=== PATIENT | female | born 1990 | race Caucasian/White ===

== ENCOUNTER 2016-08-14 19:22 | Emergency (ER) | payer BC, OTHER ==
[~2016-08-14] VITALS: Ht 165.1 cm; Wt 70.8 kg
[2016-08-14 19:25] VITALS: BP 138/83
[2016-08-14] MEDS ORDERED: LIDOCAINE 2% MDV 20 ML VIAL SC ONE (20:15)
== END 2016-08-14 20:48 | disposition home or self-care (01) ==
LOC: M ED 20:46
DX: S61.412A Laceration without foreign body of left hand, initial encounter (principal); W26.8XXA Contact with other sharp object(s), not elsewhere classified, initial encounter; Y92.099 Unspecified place in other non-institutional residence as the place of occurrence of the external cause; Y93.E5 Activity, floor mopping and cleaning; Y99.9 Unspecified external cause status; Z88.8 Allergy status to other drugs, medicaments and biological substances

== ENCOUNTER → 2018-09-25 | Outpatient (CLI) | payer OTHER, SELFPAY ==
--- NOTE | 2018-09-25 09:51 | REP ---
FIRST TRIMESTER ULTRASOUND: Real-time sonographic evaluation of gravid uterus performed. There is a single living intrauterine gestation with estimated gestational age 13 weeks 2 days, EDC 03/31/2019. BPD 22 mm = 13 weeks 4 days HC 83 mm = 13 weeks 4 days AC 62 mm = 12 weeks 6 days Femur length 8 mm = 12 weeks 4 days HC/AC ratio 1.35 is slightly above normal range of 1.12 to 1.31. heart rate 154 beats per minute. There is no subchorionic hemorrhage. Placenta is anterior with no previa. A synechiae is noted on the right. No maternal adnexal region abnormalities are seen. Electronically Signed by David Gaxiola MD 09/25/2018 02:11 P
== END ==
LOC: M RAD 07:36
PROVIDERS: ATTEND Advanced Practice Midwife
DX: O26.891 Other specified pregnancy related conditions, first trimester (principal); Z3A.13 13 weeks gestation of pregnancy; N85.6 Intrauterine synechiae

== ENCOUNTER → 2018-10-02 | Outpatient (CLI) | payer OTHER ==
[2018-10-02 13:22] LABS: BASO % 0.4 % (0.0-1.0); EOS # 0.1 10^3/uL (0.0-0.50); EOS % 0.8 % (0.0-3.0); HEMATOCRIT 40.4 % (36.0-47.0); HEMOGLOBIN 13.7 g/dl (12.0-15.5); LYMPH # 1.6 10^3/uL (1.5-6.5); LYMPH % 20.6 % (24.0-44.0); MEAN CORPUSCULAR HEMOGLOBIN 31.9 pg (27.0-33.0); MEAN CORPUSCULAR HGB CONC 33.9 g/dl (32.0-36.5); MONO # 0.5 10^3/uL (0.0-0.8); MONO % 6.4 % (0.0-5.0); NEUTROPHILS # 5.6 10^3/uL (1.8-7.7); NEUTROPHILS % 71.4 % (36.0-66.0); PLATELET COUNT, AUTOMATED 294 10^3/uL (150-450); WHITE BLOOD COUNT 7.9 10^3/uL (4.0-10.0)
[2018-10-02 14:15] LABS: HEPATITIS C VIRUS ABY INDEX < 0.0 INDEX (<0.8); HIV 1&2 SCREEN CENTAUR NEGATIVE (NEGATIVE); RUBELLA IgG QUALITATIVE IMMUNE (IMMUNE)
[2018-10-02 14:43] LABS: CHLAMYDIA DNA AMPLIFICATION NEGATIVE (NEGATIVE); GC DNA AMPLIFICATION NEGATIVE (NEGATIVE)
== END ==
LOC: M SMT 09:30
PROVIDERS: ATTEND Advanced Practice Midwife
DX: Z34.01 Encounter for supervision of normal first pregnancy, first trimester (principal); Z3A.10 10 weeks gestation of pregnancy

== ENCOUNTER → 2018-10-10 | Outpatient (CLI) | payer OTHER ==
[2018-10-10 10:43] LABS: ALT/SGPT 43 U/L (12-78); BILIRUBIN,TOTAL 0.3 MG/DL (0.2-1.0); CREATININE FOR GFR 0.52 MG/DL (0.55-1.30); GLOMERULAR FILTRATION RATE > 60.0 (>60); LDH LACTATE DEHYDROGENASE 157 U/L (84-246); URIC ACID 2.5 MG/DL (2.6-6.0)
[2018-10-10 11:02] LABS: CREATININE,RANDOM URINE 89.9 MG/DL; TOTAL PROTEIN,RANDOM URINE 18.9 MG/DL (0.0-12.0)
== END ==
LOC: M SMT 07:58
PROVIDERS: ATTEND Advanced Practice Midwife
DX: O10.012 Pre-existing essential hypertension complicating pregnancy, second trimester (principal); Z3A.00 Weeks of gestation of pregnancy not specified

== ENCOUNTER → 2018-11-15 | Outpatient (CLI) | payer OTHER, SELFPAY ==
--- NOTE | 2018-11-15 09:58 | REP ---
Obstetric sonography: History: Supervision of for anatomy. Findings: Scanning through the gravid uterus demonstrates a viable single intrauterine gestation in a cephalic lie. motion is observed and heart rate is recorded at 139 beats per minute. Anterior grade 0 placenta is seen without evidence of previa or abruption. Amniotic fluid is subjectively normal. Closed cervical length measures 5.9 cm. No extrauterine abnormality is observed. There has been appropriate interval growth. Exam quality is inhibited by position. No anomaly is seen. Face and profile and heart visualization were impeded by position and these structures were less than optimally seen. The following additional anatomic structures are identified and felt to be unremarkable: cranium, choroid plexus, cavum, cerebellum and posterior fossa, lungs, diaphragm, left-sided stomach, abdominal wall cord insertion, three-vessel cord, kidneys and bladder, spine, upper and lower extremities. Biometry chart: BPD 4.7 cm = 20 weeks 1 day Head circumference 17.8 cm = 20 weeks 2 days Abdominal circumference 15.6 cm = 20 weeks 5 days Femur length 3.4 cm = 20 weeks 5 days Humeral length 3.1 cm = 20 weeks 3 days HC/AC ratio normal 1.14. Cephalic index normal 0.72. Estimated weight 366 grams, 0 pounds 12 ounces, 50th percentile for 20 weeks 4 days. Impression: Viable single intrauterine gestation at 20 weeks 3 days by today's composite criteria. Expected gestational age estimate based on prior sonography is 20 weeks 4 days. YOHAN by prior sonography March 31, 2019. Face and cardiac views of the fetus less than optimally seen. Electronically Signed by Geoffrey Vicente MD 11/15/2018 11:17 A
== END ==
LOC: M RAD 07:19
PROVIDERS: ATTEND Advanced Practice Midwife
DX: O99.342 Other mental disorders complicating pregnancy, second trimester (principal); Z3A.20 20 weeks gestation of pregnancy

== ENCOUNTER → 2018-12-27 | Outpatient (CLI) | payer BC, SELFPAY ==
--- NOTE | 2018-12-27 08:29 | REP ---
93 ultrasound a patient with preexisting essential hypertension: There is a single intrauterine gestation in a vertex presentation. There is motion and cardiac activity. The heart rate is 128 beats per minute. The placenta is anterior. There is no placenta previa or abruptio. The placenta is grade zero maturity. The amniotic fluid volume subjectively is normal. The cervix measures 5.0 cm length. Gestational age by today's ultrasound is 26 weeks 4 days/YOHAN 03/31/2019. Gestational age by the first ultrasound is 26 weeks 4 days/YOHAN 03/31/2019. Gestational age by LMP is unknown. The following anatomic structures are identified and are unremarkable: Cranium, choroid plexus, cavum septum pellucidum, cerebellum, facial profile, upper lip, lungs, four-chamber heart, cardiac right and left ventricular outflow tracts, diaphragm, stomach, cord insertion, three-vessel cord, kidneys, bladder, spine and upper lower extremities. No anomalies are identified Electronically Signed by David Coronel MD 12/27/2018 08:20 A
== END ==
LOC: M RAD 06:30
PROVIDERS: ATTEND Advanced Practice Midwife
DX: O10.012 Pre-existing essential hypertension complicating pregnancy, second trimester (principal); Z3A.26 26 weeks gestation of pregnancy

== ENCOUNTER → 2019-01-07 | Outpatient (CLI) | payer BC ==
[2019-01-07 08:12] LABS: HEMATOCRIT 34.9 % (36.0-47.0); HEMOGLOBIN 11.6 g/dl (12.0-15.5); MEAN CORPUSCULAR HEMOGLOBIN 31.8 pg (27.0-33.0); MEAN CORPUSCULAR HGB CONC 33.2 g/dl (32.0-36.5); MEAN CORPUSCULAR VOLUME 95.6 fl (80.0-96.0); PLATELET COUNT, AUTOMATED 319 10^3/uL (150-450); RED BLOOD COUNT 3.65 10^6/uL (4.00-5.40); WHITE BLOOD COUNT 9.9 10^3/uL (4.0-10.0)
== END ==
LOC: M LAB 06:21
PROVIDERS: ATTEND Advanced Practice Midwife
DX: O10.012 Pre-existing essential hypertension complicating pregnancy, second trimester (principal)

== ENCOUNTER → 2019-01-31 | Outpatient (CLI) | payer BC ==
--- NOTE | 2019-01-31 17:36 | REP ---
OB ULTRASOUND: Real-time sonographic evaluation of the gravid uterus performed utilizing transabdominal technique. There is a single living intrauterine gestation, estimated gestational age 31 weeks 4 days, EDC 03/31/2019. Today's measurements indicate appropriate growth. BPD 80 mm = 32 weeks 0 days, 57th percentile HC 292 mm = 32 weeks 1 day, 60th percentile AC 278 mm = 31 weeks 6 days, 55th percentile FL 60 mm = 31 weeks 2 days, 47th percentile HC/AC ratio 1.05, within normal range of 0.96 to 1.15. Estimated weight 1829 grams, 47th percentile. Cervix is closed and measures 2.9 cm in length. heart rate 132 beats per minute. Amniotic fluid appears to be upper limits of normal, JAIME is 24.4. Normal range is 8.7 to 24.0. S/D ratio 3.30 is within normal range of 3.30 to 4.70. RI 0.70 is within normal range of 0.63 to 0.79. Visualized anatomy includes lateral ventricles, stomach, three vessel cord, kidneys, bladder and spine which are all grossly unremarkable. position vertex. Placenta anterior and grade 2 with no previa or abruption. Electronically Signed by David Gaxiola MD 02/03/2019 05:01 P
== END ==
LOC: M RAD 13:02
PROVIDERS: ATTEND Obstetrics & Gynecology
DX: O10.012 Pre-existing essential hypertension complicating pregnancy, second trimester (principal)

== ENCOUNTER → 2019-02-21 | Outpatient (CLI) | payer BC ==
--- NOTE | 2019-02-21 20:29 | REP ---
OB ULTRASOUND: Real-time sonographic evaluation of the gravid uterus performed. There is a single living intrauterine gestation. Estimated gestational age 34 weeks 4 days, EDC 03/31/2019. Today's measurements indicate appropriate growth. BPD 90 mm = 36 weeks 2 days, 70th percentile HC 321 mm = 36 weeks 1 day, 78th percentile AC 316 mm = 35 weeks 4 days, 65th percentile FL 65 mm = 33 weeks 3 days, 34th percentile HC/AC ratio 1.02 within normal range. Estimated weight 2600 grams, 58th percentile. Cervix is closed and measures 4.4 cm in length. heart rate 136 beats per minute. Amniotic fluid appears upper limits of normal. JAIME 23.1, within normal range of 8.0 to 24.9. S/D ratio 2.73, within normal range of 2.0 to 3.0, RI 0.63, within normal range of 0.59 to 0.75. Visualized anatomy today includes upper lip, four chamber heart, stomach, cord insertion, three vessel cord, kidneys and bladder, which are grossly unremarkable. position vertex. Placenta is anterior and grade 1 with no previa or abruption. Electronically Signed by David Gaxiola MD 02/22/2019 03:33 P
== END ==
LOC: M RAD 09:00
PROVIDERS: ATTEND Advanced Practice Midwife
DX: O10.012 Pre-existing essential hypertension complicating pregnancy, second trimester (principal); Z3A.34 34 weeks gestation of pregnancy

== ENCOUNTER → 2019-02-28 | Outpatient (REF) | payer BC | LOC: M LAB REF 16:48 | PROVIDERS: ATTEND Advanced Practice Midwife | DX: O10.013 Pre-existing essential hypertension complicating pregnancy, third trimester (principal) ==

== ENCOUNTER → 2019-03-07 | Outpatient (CLI) | payer BC | LOC: M SMT 09:24 | PROVIDERS: ATTEND Advanced Practice Midwife | DX: O10.013 Pre-existing essential hypertension complicating pregnancy, third trimester (principal) ==

== ENCOUNTER → 2019-03-12 | Outpatient (CLI) | payer BC ==
--- NOTE | 2019-03-13 05:03 | REP ---
Clinical: Growth evaluation. Comparison: 02/21/2019 . Findings: Examination demonstrates a single live intrauterine in cephalic presentation. motion is identified by technologist. Placenta is noted anterior and grade I I I without evidence for placenta previa or abruption. Amniotic fluid volume is normal. Cervix measures 2.7 cm in length and appears closed. No evidence for nuchal cord. Gestational age by LMP 37 weeks 2 days with YOHAN 03/31/2019 . Gestational age by current measurements 36 weeks 6-day with YOHAN 04/03/2019 . FHR equals 140 beats per minute. Estimated weight 3082 grams ( 50th percentile). Amniotic fluid index: 24.2 cm (7.5 - 24.3) Umbilical cord SD ratio: 2.20 (1.60 - 2.20) Anatomical assessment demonstrates normal structures. Impression: Single live advanced gestation in cephalic presentation demonstrating appropriate interval growth. No gross abnormalities are identified. Electronically Signed by Ernie Adame MD 03/13/2019 04:54 A
== END ==
LOC: M RAD 13:35
PROVIDERS: ATTEND Advanced Practice Midwife
DX: O10.012 Pre-existing essential hypertension complicating pregnancy, second trimester (principal)

== ENCOUNTER 2019-03-24 08:13 | Inpatient (IN) | payer BC ==
[~2019-03-24] VITALS: Ht 165.1 cm; Wt 93.6 kg
[2019-03-24] VITALS (14 sets, daily range): BP systolic 78–127; BP diastolic 39–70
[2019-03-24] MEDS ORDERED: LACTATED RINGER'S 1000 ML IV STA (08:21)
--- NOTE | 2019-03-24 08:54 | HPEPDOC ---
Obstetrical History & Physical General Date of Admission Mar 24, 2019 at 08:13 Primary Care Physician: KAIDEN GARCIA CNM History of Present Illness Patient is a 29-year-old female who is a at 38.4 weeks gestation with an YOHAN of 04/03/19 based off of her first trimester ultrasound. She initiated care in her first trimester of with AWP. Her has been complicated by CHTN, which has been controlled with 50 mg of Labetalol BID. She presents to L&D for an IOL related to CHTN. She reports active movement. She denies co ntractions, preeclamptic symptoms, leaking of fluid, or vaginal bleeding. Chief Complaint: Other (Chronic Hypertension) Information Provided By: Patient Age: 29 : 1 Term: 0 Pre-term: 0 Abortions: 0 Livin Care Care: Good Care Dating Final EDC: Apr 03, 2019 Final EDC by: 1st trimester (US) EGA at Admission: 38.4 Antepartum Course Diagnos(e)s Chronic hypertension Polyhydramnios Height (inches): 65 Pre- weight (lbs.): 177 Admission Weight (lbs.): 209 Change in Weight (lbs.): 32 Past Medical History Past Obstetrical History : Past Obstetrical History: [employer] History: No pertinent history Past Medical History Medical History Anxiety-no medications Childhood seizures-last seizure at age 10 Surgical History: Denies/None Family History Significant Family History: Diabetes Social History Marital Status: Family situation: Spouse/partner home Psychosocial History: Anxiety * Smoker: former Smoker Alcohol: Denies Drugs: denies Abuse Violence Screening Have you been hit/kicked/slapp: No Have you been sexually assault: No Imunizations Tdap status: current Influenza Status: current Allergies Coded Allergies: phenytoin (Verified Allergy, Mild, RASH, 03/24/19) Medications Scheduled Labetalol HCl (Labetalol HCl) 100 Mg Tablet, 50 MG PO BID No.137/Iron/Folic Acd ( Vitamin Tablet) 1 Each Tablet, 1 TAB PO DAILY Physical Examination Physical Examination GENERAL: Alert and oriented times three. BREAST: . ABDOMEN: Gravid and non-tender to touch. FETUS: Is vertex (VTX) by sterile vaginal examination (SVE), fetus is vertex (VTX) by Reyes. HEART RATE: Regular rate and rhythm. LUNGS: Clear to auscultation (CTA). EXTREMITIES: 1-2+ pitting edema on feet and ankles. No clonus. Deep tendon reflexes (DTRs) + 2. Vital Signs/I&O Vital Signs Label Value Date Time Patient Temperature 98.7 degrees F 03/24/19 1000 Temperature Source Temporal 03/24/19 1000 Respiratory Rate 16 bpm 03/24/19 1000 Pulse 83 03/24/19 0926 Blood Pressure Assessment 119/63 (81) 03/24/19 0926 Source Automatic Cuff (NIBP) Laboratory Data [facility] Laboratory Tests 2 03/24/19 08:37: Serology Scanned Report Hepatitis B Testing Urine Culture: No Growth Pertinent Laboratoy Data Blood Type: A+ RBC Antibody Screen: Negative HIV: Negative Hepatitis B: Negative Hepatitis C: Negative Rapid Plasma Reagin: Nonreactive Rubella: Immune Chlamydia/Gonorrhea: Negative Group B Streptococcus: Negative Glucose Tolerance Test: 113 Anatomy Ultrasound Ultrasound Date: Mar 12, 2019 Placenta Location: Anterior Normal Anatomy: Yes Placenta Previa: No Vaginal Examination Dilation: 1cm Effacement: other (75%) Station: -2 Cervical Consistency: Soft Cervical Position: Middle Presentation: Cephalic presentation Position: Vertex (occiput) Assessment Heart Rate (FHR): 135 Variability: Moderate Accelerations: Positive Decelerations: None Tocometer Contractions: Yes Frequency: irregular Multi-drug resistant Organism: No history of MDRO Assessment/Plan Assessment IUP at 38.4 weeks gestation Chronic hypertension polyhydramnios Category I FHR tracing GBS negative Plan Admit to L&D. Plan of care collaborated with Dr. Ortega. OOB ad lambert. Diet: regular then clears when patient is switched to IV Pitocin. Group B Streptococcus (GBS) negative. Labs and intravenous (IV) per unit protocol. Counseled on Cytotec and IV Pitocin for induction of labor. Anesthesia consult per patient's request. Lactated Ringers (LR): Bolus 800 mL prior to epidural, then at 125 mL/hr. Anticipate cervical ripening. C-S as appropriate. KAIDEN GARCIA CNM Mar 24, 2019 08:54
[2019-03-24] MEDS: miSOPROStol 50 MCG 1/2 TAB (S0191) PO SCH ×2 (09:42→13:56)
[2019-03-24 10:00] LABS: HEMATOCRIT 35.1 % (36.0-47.0); HEMOGLOBIN 11.9 g/dl (12.0-15.5); MEAN CORPUSCULAR HEMOGLOBIN 31.7 pg (27.0-33.0); MEAN CORPUSCULAR HGB CONC 33.9 g/dl (32.0-36.5); MEAN CORPUSCULAR VOLUME 93.6 fl (80.0-96.0); PLATELET COUNT, AUTOMATED 325 10^3/uL (150-450); RED BLOOD COUNT 3.75 10^6/uL (4.00-5.40); WHITE BLOOD COUNT 12.2 10^3/uL (4.0-10.0)
[2019-03-24] MEDS ORDERED: PRENTAB9 PO (10:06)
[2019-03-24] MEDS ORDERED: LABE100T36 PO (10:06)
[2019-03-24 11:08] LABS: ALT/SGPT 14 U/L (12-78); BILIRUBIN,TOTAL 0.3 MG/DL (0.2-1.0); CREATININE FOR GFR 0.45 MG/DL (0.55-1.30); GLOMERULAR FILTRATION RATE > 60.0 (>60); LDH LACTATE DEHYDROGENASE 131 U/L (84-246); URIC ACID 3.7 MG/DL (2.6-6.0)
--- NOTE | 2019-03-24 18:30 | IPNPDOC ---
Obstetrical Progress Note Date of Service Mar 24, 2019 Subjective Patient reports she feels some cramping. Objective Vital Signs Date Time Temp Pulse Resp B/P (MAP) Pulse Ox O2 Delivery O2 Flow Rate FiO2 03/24/19 15:30 97 16 92/56 (68) 03/24/19 13:42 98.5 Assessment Heart Rate (FHR): 135 Variability: Moderate Accelerations: Positive Decelerations: None Heart Rate Tracing: Category I Tocometer Contractions: Yes Frequency: regular, every 1-3 min. Sterile Vaginal Examination Dilation: 1cm (1-2 cm) Effacement (%): other (75%) Station: -2 Cervical Consistency: Soft Cervical Position: Middle Postion/Presentation: Cephalic presentation Assessment and Plan Age: 29 : 1 Term: 0 Pre-term: 0 Abortions: 0 Livin EGA at Admission: 38.4 Status: Reassuring Group B Streptococcus: Negative Anticipate: Vaginal Delivery Additional Comments Le bulb placed with 60/40 cc of NS. Patient tolerated well. IV Pitocin to be started per order. KAIDEN GARCIA CNM Mar 24, 2019 18:30
[2019-03-24] MEDS ORDERED: OXYTOCIN DRIP 30 UNITS in IV 1 EA IV SCH (19:00)
[2019-03-24] MEDS ORDERED: LR 1,000 ML IV SCH (19:00)
--- NOTE | 2019-03-24 22:20 | IPNPDOC ---
Obstetrical Progress Note Date of Service Mar 24, 2019 Subjective Patient reports her contractions aren't as strong as they were. Objective Vital Signs Date Time Temp Pulse Resp B/P (MAP) Pulse Ox O2 Delivery O2 Flow Rate FiO2 03/24/19 21:01 81 111/60 (77) 03/24/19 20:00 97.9 03/24/19 18:08 16 03/24/19 17:35 98 Room Air Assessment Heart Rate (FHR): 135 Variability: Moderate Accelerations: Positive Decelerations: None Heart Rate Tracing: Category I Tocometer Contractions: Yes Frequency: regular, every 2-2 min. Sterile Vaginal Examination Dilation: 5 cm Effacement (%): 80% Cervical Consistency: Soft Cervical Position: Middle Postion/Presentation: Cephalic presentation Assessment and Plan Age: 29 : 1 Term: 0 Pre-term: 0 Abortions: 0 Livin EGA at Admission: 38.4 Status: Reassuring Group B Streptococcus: Negative Anticipate: Vaginal Delivery Additional Comments Le bulb out. IV Pitocin at 4 mu/min. Continue with IV Pitocin and consider AROM. KAIDEN GARCIA CNM Mar 24, 2019 22:20
[2019-03-25] VITALS (20 sets, daily range): BP systolic 89–139; BP diastolic 52–77
[2019-03-25] MEDS ORDERED: FENTANYL 2MCG/ML ROPIVACAINE 0.2% IN 0.9% NACL 100ML IVBAG As Ordered ONE (01:11)
[2019-03-25] MEDS ORDERED: diphenhydrAMINE INJ 50MG/ML VIAL (J1200) IV PRN (01:15)
[2019-03-25] MEDS ORDERED: REFRIGERATOR IV KEYS XX PRN (01:15)
[2019-03-25] MEDS ORDERED: ePHEDrine SULFATE 25 MG/5 ML(5MG/ML) SYRINGE IV PRN (01:15)
[2019-03-25] MEDS ORDERED: EPIDURAL COMMENT XX SCH (01:15)
[2019-03-25] MEDS ORDERED: FENTANYL/ROPIVACAINE/NACL BAG 100 ML EPIDURAL SCH (01:15)
[2019-03-25] MEDS ORDERED: EPIDURAL/PCA KEYS XX PRN (01:15)
[2019-03-25] MEDS ORDERED: ONDANSETRON 4MG/2ML VIAL (J2405) IV PRN (01:15)
[2019-03-25] MEDS ORDERED: NALOXONE INJ 0.4 MG/1 ML VIAL (J2310) IV PRN (01:15)
[2019-03-25] MEDS ORDERED: OXYTOCIN DRIP 30 UNITS in IV 1 EA IV SCH (09:46)
[2019-03-25] MEDS ORDERED: ACETAMINOPHEN 500 MG TAB PO PRN (10:00)
[2019-03-25] MEDS ORDERED: METHYLERGONOVINE MALEATE 0.2 MG TAB PO PRN (10:00)
[2019-03-25] MEDS ORDERED: DOCUSATE SODIUM 100 MG CAP PO PRN (10:00)
[2019-03-25] MEDS ORDERED: RHOGAM 300 MCG (1500 IU) INJ (J2790) IM SCH (10:00)
[2019-03-25] MEDS ORDERED: MEASLES,MUMPS,RUBELLA VACCINE INJ (MMR-II) (90707) SC SCH (10:00)
[2019-03-25] MEDS ORDERED: DIBUCAINE 1% OINTMENT 30GM TOP PRN (10:00)
[2019-03-25] MEDS ORDERED: ACETAMINOPHEN TAB 650MG DOSE (2X325MG) PO PRN (10:00)
--- NOTE | 2019-03-25 10:19 | DNPDOC ---
[facility] Delivery Note Delivery Note DATE OF DELIVERY: 03/25/19 at 0845. PREDELIVERY DIAGNOSIS: 38-5/7 weeks' gestation and labor. POST DELIVERY DIAGNOSIS: Delivered. PROCEDURE: Spontaneous vaginal delivery. PROVIDER: Kaiden Cooley CNM, ANAID ANESTHESIA: epidural. ESTIMATED BLOOD LOSS: 350 mL. FINDINGS: 7 pounds; 3180 grams; female , Score 7/9, CHTN. DELIVERY SUMMARY: Patient is a 29-year-old female who is a at 38.4 weeks gestation who presented for an IOL for CHTN. Two doses of cytotec, a alicea bulb and IV Pitocin was used for induction. She received an epidural for pain manage ment. The patient progressed to fully dilated at 0827. She pushed to a living female in the DOMENICA position with restitution to ROT. The anterior shoulder delivered with ease and the corpus immediately followed. The baby was placed skin to skin active and crying. The cord was clamped x2 and cut by the FOB. A 3- vessel cord was noted. The placenta delivered spontaneously and intact at 0850. Uterine hemostasis was achieved via rapid infusion of IV Pitocin and fundal massage. The vagina, perineum and cervix was inspected and found to have a 2nd degree perineal laceration that was repaired with a 3.[address]-1. Mom plans to breast feed her . Both mom and baby re in stable condition. All counts of instruments and sponges are correct. KAIDEN COOLEY CNM Mar 25, 2019 10:19
[2019-03-25] MEDS: IBUPROFEN 600 MG TAB PO PRN (11:08)
[2019-03-25] MEDS: IBUPROFEN 800 MG TAB PO PRN (20:18)
[2019-03-26 06:00] VITALS: BP 107/54
[2019-03-26] MEDS: PRENATAL VITAMINS CHEWABLE TABLET PO SCH (08:01)
[2019-03-26] MEDS: IBUPROFEN 600 MG TAB PO PRN ×2 (08:04→17:50)
[2019-03-26 18:00] VITALS: BP 106/64
[2019-03-27] MEDS: IBUPROFEN 800 MG TAB PO PRN (05:16)
[2019-03-27 06:00] VITALS: BP 113/63
[2019-03-27] MEDS: PRENATAL VITAMINS CHEWABLE TABLET PO SCH (09:17)
== END 2019-03-27 11:45 | disposition home or self-care (01) | DRG 560 ==
LOC: M LDI 08:13 → M OBS 03-25 11:29
PROVIDERS: ADMIT Advanced Practice Midwife; ATTEND Advanced Practice Midwife
PROC: 3E0P7GC Introduction of Other Therapeutic Substance into Female Reproductive, Via Natural or Artificial Opening (ICD-10-PCS; 2019-03-24)
PROC: 10E0XZZ Delivery of Products of Conception, External Approach (ICD-10-PCS; principal; 2019-03-25)
PROC: 0KQM0ZZ Repair Perineum Muscle, Open Approach (ICD-10-PCS; 2019-03-25)
DX: O10.02 Pre-existing essential hypertension complicating childbirth (principal); O40.3XX0 Polyhydramnios, third trimester, not applicable or unspecified; Z3A.38 38 weeks gestation of pregnancy; O70.1 Second degree perineal laceration during delivery; Z37.0 Single live birth

== ENCOUNTER → 2020-01-29 | Outpatient (REF) | payer BC ==
[~2020-01-29] MED LIST: LABE100T36 PO; PRENTAB9 PO
== END ==
LOC: M LAB REF 14:37
PROVIDERS: ATTEND Dermatology
DX: D22.61 Melanocytic nevi of right upper limb, including shoulder (principal)

== ENCOUNTER → 2020-04-06 | Outpatient (REF) | payer BC | LOC: M LAB REF 17:38 | PROVIDERS: ATTEND Dermatology | DX: D23.61 Other benign neoplasm of skin of right upper limb, including shoulder (principal) ==

== ENCOUNTER → 2020-08-20 | Outpatient (REF) | payer BC ==
[~2020-08-20] MED LIST changes: -LABE100T36 PO; +LABE100T5 PO
== END ==
LOC: M SFHCWAGY 10:28
PROVIDERS: ATTEND Advanced Practice Midwife
DX: Z12.4 Encounter for screening for malignant neoplasm of cervix (principal)
CPT/HCPCS: 87624; G0123

== ENCOUNTER → 2021-08-10 | Outpatient (REF) | payer BC | LOC: M LAB REF 14:26 | PROVIDERS: ATTEND Physician Assistant | DX: R50.9 Fever, unspecified (principal) ==

== ENCOUNTER → 2022-07-28 | Outpatient (REF) | payer BC ==
[~2022-07-28] MED LIST changes: -LABE100T5 PO; +LABE100T71 PO
== END ==
LOC: M SFHCDERM 14:04
PROVIDERS: ATTEND Nurse Practitioner Family
DX: D23.72 Other benign neoplasm of skin of left lower limb, including hip (principal)

== ENCOUNTER → 2023-07-20 | Outpatient (CLI) | payer BC ==
[~2023-07-20] MED LIST changes: +LABE100T40 PO; -LABE100T71 PO
[2023-07-20 18:09] LABS: LDH LACTATE DEHYDROGENASE 184 U/L (120-246)
[2023-07-20 18:10] LABS: ALT/SGPT 17 U/L (7.0-40); AST/SGOT 11 U/L (<34); BILIRUBIN,TOTAL 0.3 MG/DL (0.3-1.2); GLOMERULAR FILTRATION RATE > 60.0 (>60)
[2023-07-20 18:19] LABS: HEMATOCRIT 39.6 % (36.0-47.0); HEMOGLOBIN 13.6 g/dl (12.0-15.5); MEAN CORPUSCULAR HEMOGLOBIN 31.8 pg (27.0-33.0); MEAN CORPUSCULAR HGB CONC 34.3 g/dl (32.0-36.5); MEAN CORPUSCULAR VOLUME 92.5 fl (80.0-96.0); PLATELET COUNT, AUTOMATED 335 10^3/uL (150-450); RED BLOOD COUNT 4.28 10^6/uL (4.00-5.40); WHITE BLOOD COUNT 11.3 10^3/uL (4.0-10.0)
[2023-07-20 18:23] LABS: TOTAL PROTEIN,RANDOM URINE 12.2 MG/DL (0.0-14.0)
[2023-07-20 18:28] LABS: CREATININE,RANDOM URINE 120.5 MG/DL
[2023-07-20 18:38] LABS: HIV 1&2 SCREEN NEGATIVE (NEGATIVE)
[2023-07-20 18:47] LABS: HEPATITIS C VIRUS ABY INDEX < 0.02 INDEX (<0.8)
[2023-07-20 19:13] LABS: URIC ACID 3.5 MG/DL (3.1-7.8)
[2023-07-20 19:44] LABS: GC DNA AMPLIFICATION NEGATIVE (NEGATIVE)
== END ==
LOC: M PLALAB 15:11
PROVIDERS: ATTEND Advanced Practice Midwife
DX: O10.012 Pre-existing essential hypertension complicating pregnancy, second trimester (principal); Z3A.00 Weeks of gestation of pregnancy not specified

== ENCOUNTER → 2023-08-17 | Outpatient (CLI) | payer BC | LOC: M WHC 15:19 | PROVIDERS: ATTEND Advanced Practice Midwife | DX: O10.012 Pre-existing essential hypertension complicating pregnancy, second trimester (principal); Z3A.19 19 weeks gestation of pregnancy; O36.62X0 Maternal care for excessive fetal growth, second trimester, not applicable or unspecified ==

== ENCOUNTER → 2023-09-07 | Outpatient (CLI) | payer BC | LOC: M PLALAB 13:33 | PROVIDERS: ATTEND Advanced Practice Midwife | DX: Z34.80 Encounter for supervision of other normal pregnancy, unspecified trimester (principal) ==

== ENCOUNTER → 2023-10-12 | Outpatient (CLI) | payer BC ==
[2023-10-12 16:14] LABS: HEMATOCRIT 36.2 % (36.0-47.0); HEMOGLOBIN 11.9 g/dl (12.0-15.5); MEAN CORPUSCULAR HEMOGLOBIN 31.1 pg (27.0-33.0); MEAN CORPUSCULAR HGB CONC 32.9 g/dl (32.0-36.5); MEAN CORPUSCULAR VOLUME 94.5 fl (80.0-96.0); PLATELET COUNT, AUTOMATED 316 10^3/uL (150-450); RED BLOOD COUNT 3.83 10^6/uL (4.00-5.40); WHITE BLOOD COUNT 11.4 10^3/uL (4.0-10.0)
== END ==
LOC: M PLALAB 12:59
PROVIDERS: ATTEND Advanced Practice Midwife
DX: O10.012 Pre-existing essential hypertension complicating pregnancy, second trimester (principal); Z3A.00 Weeks of gestation of pregnancy not specified

== ENCOUNTER → 2023-11-15 | Outpatient (CLI) | payer BC | LOC: M RAD 10:06 | PROVIDERS: ATTEND Advanced Practice Midwife | DX: O26.843 Uterine size-date discrepancy, third trimester (principal); Z3A.32 32 weeks gestation of pregnancy ==

== ENCOUNTER → 2023-12-14 | Outpatient (REF) | payer BC | LOC: M PLALAB 15:49 | PROVIDERS: ATTEND Advanced Practice Midwife | DX: Z34.83 Encounter for supervision of other normal pregnancy, third trimester (principal) ==

== ENCOUNTER 2024-01-06 09:20 | Inpatient (IN) | payer BC ==
[2024-01-06] VITALS (38 sets, daily range): BP systolic 84–140; BP diastolic 50–83
[~2024-01-06] VITALS: Ht 165.1 cm; Wt 88.6 kg
[2024-01-06] MEDS ORDERED: LIDOCAINE 1% MDV 20ML VIAL INFIL PRN (10:10)
[2024-01-06] MEDS ORDERED: CARBOPROST TROMETHAMINE 250 MCG/ML AMP IM PRN (10:10)
[2024-01-06] MEDS ORDERED: TRANEXAMIC ACID INJection 1,000 MG in NS 100 ML IV PRN (10:10)
[2024-01-06] MEDS ORDERED: OXYTOCIN INJ 10UNITS/ML 1ML VIAL IM PRN (10:10)
[2024-01-06] MEDS ORDERED: METHYLERGONOVINE MALEATE 0.2MG/ML 1ML VIAL IM PRN (10:10)
[2024-01-06 10:16] LABS: HEMATOCRIT 39.5 % (36.0-47.0); HEMOGLOBIN 13.7 g/dl (12.0-15.5); MEAN CORPUSCULAR HEMOGLOBIN 31.6 pg (27.0-33.0); MEAN CORPUSCULAR HGB CONC 34.7 g/dl (32.0-36.5); PLATELET COUNT, AUTOMATED 350 10^3/uL (150-450); RED BLOOD COUNT 4.34 10^6/uL (4.00-5.40); WHITE BLOOD COUNT 12.9 10^3/uL (4.0-10.0)
[2024-01-06 11:15] LABS: HEPATITIS C VIRUS ABY INDEX 0.02 INDEX (<0.8)
[2024-01-06] MEDS: LR 1,000 ML IV SCH (13:00)
[2024-01-06] MEDS: OXYTOCIN DRIP 30 UNITS in IV 1 EA IV SCH (13:00)
[2024-01-06] MEDS: LACTATED RINGER'S 1000 ML IV STA (17:07)
[2024-01-06] MEDS ORDERED: diphenhydrAMINE 50MG/ML VIAL IV PRN (17:15)
[2024-01-06] MEDS ORDERED: ONDANSETRON 4MG 2ML VIAL IV PRN (17:15)
[2024-01-06] MEDS ORDERED: EPIDURAL/PCA KEYS XX PRN (17:15)
[2024-01-06] MEDS ORDERED: NALOXONE INJ 0.4MG/1ML VIAL IV PRN (17:15)
[2024-01-06] MEDS: FENTANYL/ROPIVACAINE/NACL BAG 100 ML EPIDURAL SCH (17:38)
[2024-01-06] MEDS: ePHEDrine SULFATE 25 MG/5 ML(5MG/ML) SYRINGE IVP PRN (18:25)
[2024-01-06] MEDS: LR 500 ML IV PRN (18:25)
[2024-01-06] MEDS: OXYTOCIN DRIP 30 UNITS in IV 1 EA IV PRN (23:42)
[2024-01-07] MEDS ORDERED: MOM 30ML SUSPENSION UDC PO PRN
[2024-01-07] MEDS ORDERED: DOCUSATE SODIUM 100MG CAPSULE PO PRN
[2024-01-07] MEDS ORDERED: ANUSOL HC CREAM 30GM TOP PRN
[2024-01-07] MEDS ORDERED: ACETAMINOPHEN TAB 650MG DOSE (2X325MG) PO PRN
[2024-01-07] MEDS: AMPICILLIN SOD/SULBACTAM SOD 3 GM in D5W MINI-BAG PLUS 100 ML IV ONE (00:07)
[2024-01-07 00:14] VITALS: BP 103/58
[2024-01-07 00:27] VITALS: BP 105/61
[2024-01-07] MEDS: ACETAMINOPHEN 500 MG TAB PO PRN (01:02)
[2024-01-07 01:04] VITALS: BP 111/62
[2024-01-07 01:30] VITALS: BP 109/53; O2SAT 98
[2024-01-07] MEDS: DIBUCAINE 1% OINTMENT 30GM TOP PRN (02:14)
[2024-01-07] MEDS: IBUPROFEN 600MG TAB PO PRN (03:36)
[2024-01-07 06:00] VITALS: BP 90/55; O2SAT 98
[2024-01-07] MEDS: PRENATAL VITAMINS CHEWABLE TABLET PO SCH (08:34)
[2024-01-07 17:59] VITALS: BP 123/67; O2SAT 99
[2024-01-08] MEDS: IBUPROFEN 800 MG TAB PO PRN (01:00)
[2024-01-08 06:00] VITALS: BP 90/52; O2SAT 99
[2024-01-08] MEDS: MEASLES,MUMPS,RUBELLA VACCINE INJ (MMR-II) SC.IMMUN ONE (08:21)
== END 2024-01-08 12:33 | disposition home or self-care (01) | DRG 541 ==
LOC: M LDI 09:20 → M OBS 01-07 01:24
PROVIDERS: ADMIT Advanced Practice Midwife; ATTEND Advanced Practice Midwife
PROC: 10E0XZZ Delivery of Products of Conception, External Approach (ICD-10-PCS; principal; 2024-01-06)
PROC: 0KQM0ZZ Repair Perineum Muscle, Open Approach (ICD-10-PCS; 2024-01-06)
PROC: 10D17ZZ Extraction of Products of Conception, Retained, Via Natural or Artificial Opening (ICD-10-PCS; 2024-01-06)
PROC: 3E033VJ Introduction of Other Hormone into Peripheral Vein, Percutaneous Approach (ICD-10-PCS; 2024-01-06)
DX: O70.1 Second degree perineal laceration during delivery (principal); O69.2XX0 Labor and delivery complicated by other cord entanglement, with compression, not applicable or unspecified; O73.1 Retained portions of placenta and membranes, without hemorrhage; Z37.0 Single live birth; Z3A.39 39 weeks gestation of pregnancy

== ENCOUNTER → 2024-06-13 | Outpatient (CLI) | payer BC ==
[2024-06-13 15:41] LABS: HEMOGLOBIN 13.5 g/dl (12.0-15.5); MEAN CORPUSCULAR HEMOGLOBIN 30.3 pg (27.0-33.0); MEAN CORPUSCULAR HGB CONC 32.9 g/dl (32.0-36.5); MEAN CORPUSCULAR VOLUME 91.9 fl (80.0-96.0); PLATELET COUNT, AUTOMATED 391 10^3/uL (150-450); RED BLOOD COUNT 4.46 10^6/uL (4.00-5.40); WHITE BLOOD COUNT 8.8 10^3/uL (4.0-10.0)
[2024-06-13 16:03] LABS: ALBUMIN 3.7 G/DL (3.2-5.2); ALKALINE PHOSPHATASE 47 U/L (35-104); ALT/SGPT 15 U/L (7.0-40); AST/SGOT 12 U/L (<34); BILIRUBIN,TOTAL 0.3 MG/DL (0.3-1.2); BLOOD UREA NITROGEN 13 MG/DL (9-23); CARBON DIOXIDE LEVEL 31 MMOL/L (20-31); CHLORIDE LEVEL 103 MMOL/L (98-107); CHOLESTEROL LEVEL 139 MG/DL (<200); CHOLESTEROL RISK RATIO 2.46 (<5); GLOMERULAR FILTRATION RATE > 60.0 (>60); GLUCOSE, FASTING 74 MG/DL (60-100); HDL CHOLESTEROL 56.4 MG/DL (>40); LDL CHOLESTEROL 61.8 MG/DL (<100); NON-HDL-C 82.6 MG/DL; POTASSIUM SERUM 4.4 MMOL/L (3.5-5.1); SODIUM LEVEL 141 MMOL/L (136-145); TOTAL PROTEIN 6.8 G/DL (5.7-8.2); TRIGLYCERIDES LEVEL 104 MG/DL (<150)
== END ==
LOC: M PLALAB 13:43
PROVIDERS: ATTEND Registered Nurse
DX: Z00.00 Encounter for general adult medical examination without abnormal findings (principal); Z13.220 Encounter for screening for lipoid disorders